=== PATIENT | male | born 1995 | race African-American/Black ===

== ENCOUNTER 2016-05-19 20:43 | Emergency (ER) | payer OTHER ==
[2016-05-19] MEDS ORDERED: ONDANSETRON 4MG/2ML VIAL (J2405) As Ordered ONE (23:00)
[2016-05-19 23:21] LABS: BASO # 0.1 K/mm3 (0.0-0.2); BASO % 1.4 % (0.0-1.0); EOS # 0.1 K/mm3 (0.0-0.50); EOS % 0.9 % (0.0-3.0); LARGE UNSTAINED CELL # 0.3 K/mm3 (0.0-0.4); LARGE UNSTAINED CELL % 3.2 % (0.0-4.0); LYMPH # 3.6 K/mm3 (1.5-6.5); LYMPH % 35.2 % (24.0-44.0); MEAN CORPUSCULAR HEMOGLOBIN 29.3 pg (27.0-33.0); MEAN CORPUSCULAR HGB CONC 33.7 g/dl (32.0-36.5); MEAN CORPUSCULAR VOLUME 86.8 fl (80.0-96.0); MONO # 0.5 K/mm3 (0.0-0.8); MONO % 5.7 % (0.0-5.0); NEUTROPHILS % 53.6 % (36.0-66.0); PLATELET COUNT, AUTOMATED 280 k/mm3 (150-450); RED CELL DISTRIBUTION WIDTH 13.1 % (11.5-14.5); WHITE BLOOD COUNT 9.3 K/mm3 (4.0-10.0)
[2016-05-19 23:38] LABS: ALBUMIN 4.4 GM/DL (3.2-5.2); ALBUMIN/GLOBULIN RATIO 1.26 (1.00-1.93); ALKALINE PHOSPHATASE 73 U/L (45-117); ALT/SGPT 26 U/L (12-78); ANION GAP 8 MEQ/L (8-16); AST/SGOT 28 U/L (15-37); BILIRUBIN,DIRECT 0.2 MG/DL (0.0-0.2); BILIRUBIN,TOTAL 0.5 MG/DL (0.2-1.0); BLOOD UREA NITROGEN 12 MG/DL (7-18); CALCIUM LEVEL 9.1 MG/DL (8.5-10.1); CARBON DIOXIDE LEVEL 29 MEQ/L (21-32); CHLORIDE LEVEL 99 MEQ/L (98-107); CREATININE FOR GFR 1.35 MG/DL (0.70-1.30); GLOMERULAR FILTRATION RATE > 60.0 (>60); GLUCOSE, FASTING 87 MG/DL (70-105); POTASSIUM SERUM 3.6 MEQ/L (3.5-5.1); SODIUM LEVEL 136 MEQ/L (136-145); TOTAL PROTEIN 7.9 GM/DL (6.4-8.2)
--- NOTE | 2016-05-20 00:25 | EDDOCDS ---
Nurse's Notes [facility] Name: Conrad Landaverde Age: 20 yrs Sex: Male : 1995 Arrival Date: 05/19/2016 Time: 20:43 Bed I3 / M3 Private MD: EUGENE Cerda Diagnosis: Nausea and vomiting Presentation: 05/19 20:51 Presenting complaint: Patient states: Hasn't eaten in 3 days, vomiting, drinking mcp pedialyte and not keeping it down, sweats at night. Adult Sepsis Screening: The patient does not have new or worsening altered mentation. Patient's respiratory rate is less than 22. Systolic blood pressure is greater than 100. Patient has a qSOFA score of 0- Negative Sepsis Screen. Suicide/Homicide risk assessment- the patient denies having any suicidal and/or homicidal ideations and does not present with any other emotional, behavioral or mental health complaints. Status: The patient is an active duty delivery driver/customer service. Transition of care: patient was not received from another setting of care. 20:51 Acuity: [place] Level 4 [facility] 20:51 Method Of Arrival: Walkin/Carried/Asstd [facility] Triage Assessment: 20:52 General: Appears in no apparent distress, Behavior is cooperative. Pain: Location: [facility] abdomen Pain currently is 6 out of 10 on a pain scale. HIV screening NA for this visit Offered previously. Neurological: No deficits noted. Respiratory: Airway is patent Respiratory effort is even, unlabored. GI: Reports upper abd pain, nausea, vomiting. Derm: Skin is pink, warm & dry. Historical: - Allergies: no known allergies; - Home Meds: 1. none - PMHx: none; - PSHx: none; - Social history: Smoking status: Patient uses tobacco products, light tobacco smoker. No barriers to communication noted, The patient speaks fluent Sri [place]ankan. - Family history: Not pertinent. - : The pt / caregiver states he / she is not on anticoagulants. Home medication list is obtained from the patient. - Exposure Risk Screening:: None identified. Screenin/07 00:22 Screening information is obtained from the patient. Fall risk: No risks identified. ld5 Assistance ADL's: requires no assistance with activities of daily living. Abuse/DV Screen: The patient / caregiver reports he/she is: not in a situation that causes fear, pain or injury. Nutritional screening: No deficits noted. Advance Directives: Currently, there is no health care proxy. home support is adequate. Assessment: 05/19 23:18 General: Appears in no apparent distress, Behavior is cooperative. Pain: Denies pain. ld5 Neurological: Level of Consciousness is awake, alert. Respiratory: Airway is patent Respiratory effort is even, unlabored. GI: Reports nausea, vomiting. Derm: Skin is intact, Skin is dry. 05/20 00:22 General: Appears in no apparent distress, Behavior is cooperative, pleasant. Pain: ld5 Denies pain. Neurological: Level of Consciousness is awake, alert. GI: Denies nausea, vomiting. Vital Signs: 05/19 20:46 BP 153 / 79; Pulse 97; Resp 18; Temp 98.8; Pulse Ox 99% ; Weight 65.77 kg; Height 5 ft. elp 11 in. (180.34 cm); Pain 0/10; 05/20 00:22 BP 137 / 75; Pulse 74; Resp 16; Temp 97.2; Pulse Ox 100% on R/A; Pain 0/10; ld5 05/19 20:46 Body Mass Index 20.22 (65.77 kg, 180.34 cm) elp Vitals: 05/19 20:46 Log In Time: May 19, 2016 at 20:42. [facility] ED Course: 20:44 Patient visited by Socorro Deluna PCA. elp 20:44 Prashant [facility] is Private Physician. elp 20:44 Patient moved to Waiting elp 20:47 Patient visited by Socorro Deluna PCA. elp 20:47 Patient moved to Pre RCE elp 20:52 Triage Initiated [facility] 20:53 Patient visited by Trice Ruiz RN. [facility] 22:37 Patient moved to Triage [facility] 22:39 [facility] cc[facility] 22:39 Georgi Mtz DO is Attending Physician. cc10 22:45 Patient visited by Keon Jane PA-C. cc10 22:45 Patient visited by Keon Jane PA-C. cc10 22:50 Patient moved to I3 / M3 cz 23:13 Patient visited by Lidia Gifford LPN. cp1 23:13 GC & Chlamydia Amplification Sent. cp1 23:13 Basic Metabolic Profile Sent. cp1 23:13 CBC with Diff Sent. cp1 23:13 Lipase Sent. cp1 23:13 Liver Profile Sent. cp1 23:14 Urinalysis Sent. cp1 23:14 Inserted saline lock: 20 gauge in left antecubital area and blood collected. The cp1 patient tolerated the procedure well. 23:45 Patient visited by Lidia Gifford LPN. cp1 23:53 [facility] Payment Agreement was scanned into [employer] and attached to record. hs2 05/20 00:18 Prashant [facility] is Referral Physician. cc10 00:22 The patient / caregiver is instructed regarding the plan of care and ED course. Patient ld5 has correct armband on for positive identification. Placed in gown. Bed in low position. Call light in reach. 00:22 Discontinued lock intact, bleeding controlled, pressure dressing applied, No ld5 redness/swelling at site. No procedures done that require assistance. 00:25 Patient visited by Aislinn Gonzales RN. ld5 Administered Medications: 05/19 23:12 Drug: NS 0.9% 1000 ml [sodium chloride 0.9 % intravenous solution] Route: IV; Rate: ld5 bolus; Site: left antecubital; 05/20 00:24 Follow up: IV Status: Completed infusion; IV Intake: 1000ml ld5 05/19 23:12 Drug: Ondansetron 4 mg [ondansetron HCl 2 mg/mL intravenous solution (2 mL)] Route: ld5 IVP; Site: left antecubital; 05/20 00:24 Follow up: Response: Nausea is resolved ld5 Intake: 00:24 IV: 1000.00ml; Total: 1000.00ml. ld5 Order Results: Lab Order: Basic Metabolic Profile; SPEC'M 05/19/16 23:11 Test: GLUCOSE, FASTING; Value: 87; Range: 70-105; Units: MG/DL; Status: F Test: BLOOD UREA NITROGEN; Value: 12; Range: 7-18; Units: MG/DL; Status: F Test: CREATININE FOR GFR; Value: 1.35; Range: 0.70-1.30; Abnormal: Above high normal; Units: MG/DL; Status: F Test: GLOMERULAR FILTRATION RATE; Value: > 60.0; Range: >60; Status: F Test: SODIUM LEVEL; Value: 136; Range: 136-145; Units: MEQ/L; Status: F Test: POTASSIUM SERUM; Value: 3.6; Range: 3.5-5.1; Units: MEQ/L; Status: F Test: CHLORIDE LEVEL; Value: 99; Range: 98-107; Units: MEQ/L; Status: F Test: CARBON DIOXIDE LEVEL; Value: 29; Range: 21-32; Units: MEQ/L; Status: F Test: ANION GAP; Value: 8; Range: 8-16; Units: MEQ/L; Status: F Test: CALCIUM LEVEL; Value: 9.1; Range: 8.5-10.1; Units: MG/DL; Status: F Test Note: ; Units are mL/min/1.73 m2 Chronic Kidney Disease Staging per NKF: Stage I & II GFR >=60 Normal to Mildly Decreased Stage III GFR 30-59 Moderately Decreased Stage IV GFR 15-29 Severely Decreased Stage V GFR <15 Very Little GFR Left ESRD GFR <15 on TRANSCRIPTION SPECIALIST Lab Order: CBC with Diff; SPEC'M 05/19/16 23:11 Test: WHITE BLOOD COUNT; Value: 9.3; Range: 4.0-10.0; Units: K/mm3; Status: F Test: RED BLOOD COUNT; Value: 5.16; Range: 4.30-6.10; Units: M/mm3; Status: F Test: HEMOGLOBIN; Value: 15.1; Range: 14.0-18.0; Units: g/dl; Status: F Test: HEMATOCRIT; Value: 44.8; Range: 42.0-52.0; Units: %; Status: F Test: MEAN CORPUSCULAR VOLUME; Value: 86.8; Range: 80.0-96.0; Units: fl; Status: F Test: MEAN CORPUSCULAR HEMOGLOBIN; Value: 29.3; Range: 27.0-33.0; Units: pg; Status: F Test: MEAN CORPUSCULAR HGB CONC; Value: 33.7; Range: 32.0-36.5; Units: g/dl; Status: F Test: RED CELL DISTRIBUTION WIDTH; Value: 13.1; Range: 11.5-14.5; Units: %; Status: F Test: PLATELET COUNT, AUTOMATED; Value: 280; Range: 150-450; Units: k/mm3; Status: F Test: NEUTROPHILS %; Value: 53.6; Range: 36.0-66.0; Units: %; Status: F Test: LYMPH %; Value: 35.2; Range: 24.0-44.0; Units: %; Status: F Test: MONO %; Value: 5.7; Range: 0.0-5.0; Abnormal: Above high normal; Units: %; Status: F Test: EOS %; Value: 0.9; Range: 0.0-3.0; Units: %; Status: F Test: BASO %; Value: 1.4; Range: 0.0-1.0; Abnormal: Above high normal; Units: %; Status: F Test: LARGE UNSTAINED CELL %; Value: 3.2; Range: 0.0-4.0; Units: %; Status: F Test: NEUTROPHILS #; Value: 5.0; Range: 1.8-7.7; Units: K/mm3; Status: F Test: LYMPH #; Value: 3.6; Range: 1.5-6.5; Units: K/mm3; Status: F Test: MONO #; Value: 0.5; Range: 0.0-0.8; Units: K/mm3; Status: F Test: EOS #; Value: 0.1; Range: 0.0-0.50; Units: K/mm3; Status: F Test: BASO #; Value: 0.1; Range: 0.0-0.2; Units: K/mm3; Status: F Test: LARGE UNSTAINED CELL #; Value: 0.3; Range: 0.0-0.4; Units: K/mm3; Status: F Lab Order: Lipase; SPEC'M 05/19/16 23:11 Test: LIPASE; Value: 125; Range: 73-393; Units: U/L; Status: F Lab Order: Liver Profile; SPEC'M 05/19/16 23:11 Test: AST/SGOT; Value: 28; Range: 15-37; Units: U/L; Status: F Test: ALT/SGPT; Value: 26; Range: 12-78; Units: U/L; Status: F Test: ALKALINE PHOSPHATASE; Value: 73; Range: 45-117; Units: U/L; Status: F Test: BILIRUBIN,TOTAL; Value: 0.5; Range: 0.2-1.0; Units: MG/DL; Status: F Test: BILIRUBIN,DIRECT; Value: 0.2; Range: 0.0-0.2; Units: MG/DL; Status: F Test: TOTAL PROTEIN; Value: 7.9; Range: 6.4-8.2; Units: GM/DL; Status: F Test: ALBUMIN; Value: 4.4; Range: 3.2-5.2; Units: GM/DL; Status: F Test: ALBUMIN/GLOBULIN RATIO; Value: 1.26; Range: 1.00-1.93; Status: F Lab Order: Urinalysis; SPEC'M 05/19/16 23:12 Test: APPEARANCE, URINE; Value: HAZY; Range: CLEAR; Status: F Test: COLOR, URINE; Value: LEWIS; Range: YELLOW; Status: F Test: PH,URINE; Value: 5.0; Range: 5.0-9.0; Units: UNITS; Status: F Test: SPECIFIC GRAVITY URINE AUTO; Value: 1.040; Range: 1.002-1.035; Status: F Test: PROTEIN, URINE AUTO; Value: 2+; Range: NEGATIVE; Abnormal: Above high normal; Units: mg/dL; Status: F Test: GLUCOSE, URINE (UA) AUTO; Value: NEGATIVE; Range: NEGATIVE; Units: mg/dL; Status: F Test: KETONE, URINE AUTO; Value: TRACE; Range: NEGATIVE; Abnormal: Above high normal; Units: mg/dL; Status: F Test: UROBILINOGEN, URINE AUTO; Value: 2.0; Range: 0.0-2.0; Abnormal: Above high normal; Units: mg/dL; Status: F Test: BILIRUBIN, URINE AUTO; Value: 1+; Range: NEGATIVE; Abnormal: Above high normal; Status: F Test: NITRITE, URINE AUTO; Value: NEGATIVE; Range: NEGATIVE; Status: F Test: LEUKOCYTE ESTERASE, URINE AUTO; Value: 1+; Range: NEGATIVE; Abnormal: Above high normal; Status: F Test: BLOOD, URINE BLOOD; Value: NEGATIVE; Range: NEGATIVE; Status: F Test: WBC, URINE AUTO; Value: 29; Range: 0-3; Abnormal: Above high normal; Units: /HPF; Status: F Test: RBC, URINE AUTO; Value: 7; Range: 0-3; Abnormal: Above high normal; Units: /HPF; Status: F Test: BACTERIA, URINE AUTO; Value: NEGATIVE; Range: NEGATIVE; Status: F Test: SQUAMOUS EPITHELIAL CELL UR AU; Value: 0; Range: 0-6; Units: /HPF; Status: F Test: MUCUS, URINE; Value: LARGE; Range: NEGATIVE; Status: F Test: HYALINE CAST, URINE AUTO; Value: 0; Range: 0-1; Units: /LPF; Status: F Outcome: 00:18 Discharge ordered by Provider. cc10 00:22 Discharge Assessment: Patient awake, alert and oriented x 3. No cognitive and/or ld5 functional deficits noted. Patient verbalized understanding of disposition instructions. patient administered narcotics - no. The following High Risk Discharge criteria are identified: None. Discharged to home ambulatory. Condition: stable. Discharge instructions given to patient, Instructed on discharge instructions, follow up and referral plans. medication usage, diet, safe sex practices, Demonstrated understanding of instructions, medications, Pt was receptive of discharge instructions/ teaching. Prescriptions given X 1. No special radiology studies were completed. Property :Personal belongings accompany Pt. 00:25 Patient left the ED. ld5 Signatures: Trice Ruiz RN RN mcp Zecher, Calvin, RN RN cz Perkins, Cheryl, LPN LPN cp1 Aislinn Gonzales RN RN ld5 Joy Selby RN RN cjh Patchen, Erin, [place] [employer] Keon Hinkle, PA-C PA-C cc10 Tresa Tapia, Reg Reg hs2 MTDD
--- NOTE | 2016-05-20 00:25 | EDDOCDS ---
Physician Documentation [facility] Name: Conrad Landaverde Age: 20 yrs Sex: Male : 1995 Arrival Date: 05/19/2016 Time: 20:43 Bed I3 / M3 Private MD: EUGENE Cerda Disposition: 05/20/16 00:18 Discharged to Home/Self Care. Impression: Nausea and vomiting. - Condition is Stable. - Discharge Instructions: Nausea and Vomiting. - Prescriptions for ZOFRAN ODT 4 mg - dissolve 1 tablet by ORAL route 4 times per day As needed do not chew, do not swallow whole; 10 tablet. - Medication Reconciliation form. - Follow up: Emergency Department; When: As needed. Follow up: EUGENE Cerda; When: Call to arrange an appointment; Reason: Wound/Symptom Recheck, Recheck today's complaints, Worsening of conditions, Continuance of care. - Problem is an ongoing problem. - Symptoms have improved. Historical: - Allergies: no known allergies; - Home Meds: 1. none - PMHx: none; - PSHx: none; - Social history: Smoking status: Patient uses tobacco products, light tobacco smoker. No barriers to communication noted, The patient speaks fluent Dominican. - Family history: Not pertinent. - : The pt / caregiver states he / she is not on anticoagulants. Home medication list is obtained from the patient. - Exposure Risk Screening:: None identified. Vital Signs: 05/19 20:46 BP 153 / 79; Pulse 97; Resp 18; Temp 98.8; Pulse Ox 99% ; Weight 65.77 kg / 145 lbs; elp Height 5 ft. 11 in. (180.34 cm); Pain 0/10; 05/20 00:22 BP 137 / 75; Pulse 74; Resp 16; Temp 97.2; Pulse Ox 100% on R/A; Pain 0/10; ld5 05/19 20:46 Body Mass Index 20.22 (65.77 kg, 180.34 cm) elp MDM: 05/19 22:50 NS 0.9% 1000 ml IV at bolus once ordered. cc10 22:50 Ondansetron 4 mg IVP once ordered. cc10 22:50 IV Saline Lock ordered. cc10 22:50 Undress patient appropriately for examination ordered. cc10 22:51 Basic Metabolic Profile Ordered. EDMS 22:51 CBC with Diff Ordered. EDMS 22:51 Lipase Ordered. EDMS 22:51 Liver Profile Ordered. EDMS 22:51 Urinalysis Ordered. EDMS 22:51 GC & Chlamydia Amplification Ordered. EDMS 22:52 NOTHING BY MOUTH+DIET ordered. EDMS 23:43 Financial registration complete. hs2 23:53 [facility] Payment Agreement was scanned into [employer] and attached to record. hs2 Administered Medications: 23:12 Drug: NS 0.9% 1000 ml [sodium chloride 0.9 % intravenous solution] Route: IV; Rate: ld5 bolus; Site: left antecubital; 05/20 00:24 Follow up: IV Status: Completed infusion; IV Intake: 1000ml ld5 05/19 23:12 Drug: Ondansetron 4 mg [ondansetron HCl 2 mg/mL intravenous solution (2 mL)] Route: ld5 IVP; Site: left antecubital; 05/20 00:24 Follow up: Response: Nausea is resolved ld5 Signatures: Dispatcher [employer] Trice Francis RN RN [facility] Aislinn Gonzales RN RN ld5 Keon Jane, PA-C PA-C cc10 Tresa Tapia, Reg Reg hs2 The chart was reviewed and I authenticate all verbal orders and agree with the evaluation and treatment provided.Attachments: 05/19 23:53 [facility] Payment Agreement hs2 MTDD
--- NOTE | 2016-05-23 10:16 | EDDOCDS ---
Nurse's Notes [facility] Name: Conrad Landaverde Age: 20 yrs Sex: Male : 1995 Arrival Date: 05/19/2016 Time: 20:43 Bed I3 / M3 Private MD: EUGENE Cerda Diagnosis: Nausea and vomiting Presentation: 05/19 20:51 Presenting complaint: Patient states: Hasn't eaten in 3 days, vomiting, drinking mcp pedialyte and not keeping it down, sweats at night. Adult Sepsis Screening: The patient does not have new or worsening altered mentation. Patient's respiratory rate is less than 22. Systolic blood pressure is greater than 100. Patient has a qSOFA score of 0- Negative Sepsis Screen. Suicide/Homicide risk assessment- the patient denies having any suicidal and/or homicidal ideations and does not present with any other emotional, behavioral or mental health complaints. Status: The patient is an active duty food service utility worker. Transition of care: patient was not received from another setting of care. 20:51 Acuity: CAMILLE Level 4 [facility] 20:51 Method Of Arrival: Walkin/Carried/Asstd [facility] Triage Assessment: 20:52 General: Appears in no apparent distress, Behavior is cooperative. Pain: Location: [facility] abdomen Pain currently is 6 out of 10 on a pain scale. HIV screening NA for this visit Offered previously. Neurological: No deficits noted. Respiratory: Airway is patent Respiratory effort is even, unlabored. GI: Reports upper abd pain, nausea, vomiting. Derm: Skin is pink, warm & dry. Historical: - Allergies: no known allergies; - Home Meds: 1. none - PMHx: none; - PSHx: none; - Social history: Smoking status: Patient uses tobacco products, light tobacco smoker. No barriers to communication noted, The patient speaks fluent British. - Family history: Not pertinent. - : The pt / caregiver states he / she is not on anticoagulants. Home medication list is obtained from the patient. - Exposure Risk Screening:: None identified. Screenin/07 00:22 Screening information is obtained from the patient. Fall risk: No risks identified. ld5 Assistance ADL's: requires no assistance with activities of daily living. Abuse/DV Screen: The patient / caregiver reports he/she is: not in a situation that causes fear, pain or injury. Nutritional screening: No deficits noted. Advance Directives: Currently, there is no health care proxy. home support is adequate. Assessment: 05/19 23:18 General: Appears in no apparent distress, Behavior is cooperative. Pain: Denies pain. ld5 Neurological: Level of Consciousness is awake, alert. Respiratory: Airway is patent Respiratory effort is even, unlabored. GI: Reports nausea, vomiting. Derm: Skin is intact, Skin is dry. 05/20 00:22 General: Appears in no apparent distress, Behavior is cooperative, pleasant. Pain: ld5 Denies pain. Neurological: Level of Consciousness is awake, alert. GI: Denies nausea, vomiting. Vital Signs: 05/19 20:46 BP 153 / 79; Pulse 97; Resp 18; Temp 98.8; Pulse Ox 99% ; Weight 65.77 kg; Height 5 ft. elp 11 in. (180.34 cm); Pain 0/10; 05/20 00:22 BP 137 / 75; Pulse 74; Resp 16; Temp 97.2; Pulse Ox 100% on R/A; Pain 0/10; ld5 05/19 20:46 Body Mass Index 20.22 (65.77 kg, 180.34 cm) elp Vitals: 05/19 20:46 Log In Time: May 19, 2016 at 20:42. [facility] ED Course: 20:44 Patient visited by Socorro Deluna PCA. elp 20:44 Prashant [facility] [place] Private Physician. elp 20:44 Patient moved to Waiting elp 20:47 Patient visited by Socorro Deluna PCA. elp 20:47 Patient moved to Pre RCE elp 20:52 Triage Initiated [facility] 20:53 Patient visited by Trice Ruiz RN. [facility] 22:37 Patient moved to Triage 1 [facility] 22:39 [facility] cc[facility] 22:39 Georgi Mtz DO is Attending Physician. cc10 22:45 Patient visited by Keon Jane PA-C. cc10 22:45 Patient visited by Keon Jane PA-C. cc10 22:50 Patient moved to I3 / M3 cz 23:13 Patient visited by Lidia Gifford LPN. cp1 23:13 GC & Chlamydia Amplification Sent. cp1 23:13 Basic Metabolic Profile Sent. cp1 23:13 CBC with Diff Sent. cp1 23:13 Lipase Sent. cp1 23:13 Liver Profile Sent. cp1 23:14 Urinalysis Sent. cp1 23:14 Inserted saline lock: 20 gauge in left antecubital area and blood collected. The cp1 patient tolerated the procedure well. 23:45 Patient visited by Lidia Gifford LPN. cp1 23:53 [facility] Payment Agreement was scanned into [employer] and attached to record. hs2 05/20 00:18 [facility]ashant [facility] [place]erral Physician. cc10 00:22 The patient / caregiver is instructed regarding the plan of care and ED course. Patient ld5 has correct armband on for positive identification. Placed in gown. Bed in low position. Call light in reach. 00:22 Discontinued lock intact, bleeding controlled, pressure dressing applied, No ld5 redness/swelling at site. No procedures done that require assistance. 00:25 Patient visited by Aislinn Gonzales RN. ld5 08:06 T-Sheet-- Draft Copy was scanned into [employer] and attached to record. [facility] Administered Medications: 05/19 23:12 Drug: NS 0.9% 1000 ml [sodium chloride 0.9 % intravenous solution] Route: IV; Rate: ld5 bolus; Site: left antecubital; 05/20 00:24 Follow up: IV Status: Completed infusion; IV Intake: 1000ml ld5 05/19 23:12 Drug: Ondansetron 4 mg [ondansetron HCl 2 mg/mL intravenous solution (2 mL)] Route: ld5 IVP; Site: left antecubital; 05/20 00:24 Follow up: Response: Nausea is resolved ld5 Intake: 00:24 IV: 1000.00ml; Total: 1000.00ml. ld5 Order Results: Lab Order: Basic Metabolic Profile; SPEC'M 05/19/16 23:11 Test: GLUCOSE, FASTING; Value: 87; Range: 70-105; Units: MG/DL; Status: F Test: BLOOD UREA NITROGEN; Value: 12; Range: 7-18; Units: MG/DL; Status: F Test: CREATININE FOR GFR; Value: 1.35; Range: 0.70-1.30; Abnormal: Above high normal; Units: MG/DL; Status: F Test: GLOMERULAR FILTRATION RATE; Value: > 60.0; Range: >60; Status: F Test: SODIUM LEVEL; Value: 136; Range: 136-145; Units: MEQ/L; Status: F Test: POTASSIUM SERUM; Value: 3.6; Range: 3.5-5.1; Units: MEQ/L; Status: F Test: CHLORIDE LEVEL; Value: 99; Range: 98-107; Units: MEQ/L; Status: F Test: CARBON DIOXIDE LEVEL; Value: 29; Range: 21-32; Units: MEQ/L; Status: F Test: ANION GAP; Value: 8; Range: 8-16; Units: MEQ/L; Status: F Test: CALCIUM LEVEL; Value: 9.1; Range: 8.5-10.1; Units: MG/DL; Status: F Test Note: ; Units are mL/min/1.73 m2 Chronic Kidney Disease Staging per NKF: Stage I & II GFR >=60 Normal to Mildly Decreased Stage III GFR 30-59 Moderately Decreased Stage IV GFR 15-29 Severely Decreased Stage V GFR <15 Very Little GFR Left ESRD GFR <15 on WATER PURIFICATION CHEMIST Lab Order: CBC with Diff; SPEC'M 05/19/16 23:11 Test: WHITE BLOOD COUNT; Value: 9.3; Range: 4.0-10.0; Units: K/mm3; Status: F Test: RED BLOOD COUNT; Value: 5.16; Range: 4.30-6.10; Units: M/mm3; Status: F Test: HEMOGLOBIN; Value: 15.1; Range: 14.0-18.0; Units: g/dl; Status: F Test: HEMATOCRIT; Value: 44.8; Range: 42.0-52.0; Units: %; Status: F Test: MEAN CORPUSCULAR VOLUME; Value: 86.8; Range: 80.0-96.0; Units: fl; Status: F Test: MEAN CORPUSCULAR HEMOGLOBIN; Value: 29.3; Range: 27.0-33.0; Units: pg; Status: F Test: MEAN CORPUSCULAR HGB CONC; Value: 33.7; Range: 32.0-36.5; Units: g/dl; Status: F Test: RED CELL DISTRIBUTION WIDTH; Value: 13.1; Range: 11.5-14.5; Units: %; Status: F Test: PLATELET COUNT, AUTOMATED; Value: 280; Range: 150-450; Units: k/mm3; Status: F Test: NEUTROPHILS %; Value: 53.6; Range: 36.0-66.0; Units: %; Status: F Test: LYMPH %; Value: 35.2; Range: 24.0-44.0; Units: %; Status: F Test: MONO %; Value: 5.7; Range: 0.0-5.0; Abnormal: Above high normal; Units: %; Status: F Test: EOS %; Value: 0.9; Range: 0.0-3.0; Units: %; Status: F Test: BASO %; Value: 1.4; Range: 0.0-1.0; Abnormal: Above high normal; Units: %; Status: F Test: LARGE UNSTAINED CELL %; Value: 3.2; Range: 0.0-4.0; Units: %; Status: F Test: NEUTROPHILS #; Value: 5.0; Range: 1.8-7.7; Units: K/mm3; Status: F Test: LYMPH #; Value: 3.6; Range: 1.5-6.5; Units: K/mm3; Status: F Test: MONO #; Value: 0.5; Range: 0.0-0.8; Units: K/mm3; Status: F Test: EOS #; Value: 0.1; Range: 0.0-0.50; Units: K/mm3; Status: F Test: BASO #; Value: 0.1; Range: 0.0-0.2; Units: K/mm3; Status: F Test: LARGE UNSTAINED CELL #; Value: 0.3; Range: 0.0-0.4; Units: K/mm3; Status: F Lab Order: Lipase; SPEC'M 05/19/16 23:11 Test: LIPASE; Value: 125; Range: 73-393; Units: U/L; Status: F Lab Order: Liver Profile; SPEC'M 05/19/16 23:11 Test: AST/SGOT; Value: 28; Range: 15-37; Units: U/L; Status: F Test: ALT/SGPT; Value: 26; Range: 12-78; Units: U/L; Status: F Test: ALKALINE PHOSPHATASE; Value: 73; Range: 45-117; Units: U/L; Status: F Test: BILIRUBIN,TOTAL; Value: 0.5; Range: 0.2-1.0; Units: MG/DL; Status: F Test: BILIRUBIN,DIRECT; Value: 0.2; Range: 0.0-0.2; Units: MG/DL; Status: F Test: TOTAL PROTEIN; Value: 7.9; Range: 6.4-8.2; Units: GM/DL; Status: F Test: ALBUMIN; Value: 4.4; Range: 3.2-5.2; Units: GM/DL; Status: F Test: ALBUMIN/GLOBULIN RATIO; Value: 1.26; Range: 1.00-1.93; Status: F Lab Order: Urinalysis; SPEC'M 05/19/16 23:12 Test: APPEARANCE, URINE; Value: HAZY; Range: CLEAR; Status: F Test: COLOR, URINE; Value: LEWIS; Range: YELLOW; Status: F Test: PH,URINE; Value: 5.0; Range: 5.0-9.0; Units: UNITS; Status: F Test: SPECIFIC GRAVITY URINE AUTO; Value: 1.040; Range: 1.002-1.035; Status: F Test: PROTEIN, URINE AUTO; Value: 2+; Range: NEGATIVE; Abnormal: Above high normal; Units: mg/dL; Status: F Test: GLUCOSE, URINE (UA) AUTO; Value: NEGATIVE; Range: NEGATIVE; Units: mg/dL; Status: F Test: KETONE, URINE AUTO; Value: TRACE; Range: NEGATIVE; Abnormal: Above high normal; Units: mg/dL; Status: F Test: UROBILINOGEN, URINE AUTO; Value: 2.0; Range: 0.0-2.0; Abnormal: Above high normal; Units: mg/dL; Status: F Test: BILIRUBIN, URINE AUTO; Value: 1+; Range: NEGATIVE; Abnormal: Above high normal; Status: F Test: NITRITE, URINE AUTO; Value: NEGATIVE; Range: NEGATIVE; Status: F Test: LEUKOCYTE ESTERASE, URINE AUTO; Value: 1+; Range: NEGATIVE; Abnormal: Above high normal; Status: F Test: BLOOD, URINE BLOOD; Value: NEGATIVE; Range: NEGATIVE; Status: F Test: WBC, URINE AUTO; Value: 29; Range: 0-3; Abnormal: Above high normal; Units: /HPF; Status: F Test: RBC, URINE AUTO; Value: 7; Range: 0-3; Abnormal: Above high normal; Units: /HPF; Status: F Test: BACTERIA, URINE AUTO; Value: NEGATIVE; Range: NEGATIVE; Status: F Test: SQUAMOUS EPITHELIAL CELL UR AU; Value: 0; Range: 0-6; Units: /HPF; Status: F Test: MUCUS, URINE; Value: LARGE; Range: NEGATIVE; Status: F Test: HYALINE CAST, URINE AUTO; Value: 0; Range: 0-1; Units: /LPF; Status: F Lab Order: GC & Chlamydia Amplification; SPEC'M 05/19/16 23:11 Test: CHLAMYDIA DNA AMPLIFICATION; Value: NEGATIVE; Range: NEGATIVE; Status: F Test: GC DNA AMPLIFICATION; Value: NEGATIVE; Range: NEGATIVE; Status: F Outcome: 00:18 Discharge ordered by Provider. cc10 00:22 Discharge Assessment: Patient awake, alert and oriented x 3. No cognitive and/or ld5 functional deficits noted. Patient verbalized understanding of disposition instructions. patient administered narcotics - no. The following High Risk Discharge criteria are identified: None. Discharged to home ambulatory. Condition: stable. Discharge instructions given to patient, Instructed on discharge instructions, follow up and referral plans. medication usage, diet, safe sex practices, Demonstrated understanding of instructions, medications, Pt was receptive of discharge instructions/ teaching. Prescriptions given X 1. No special radiology studies were completed. Property :Personal belongings accompany Pt. 00:25 Patient left the ED. ld5 Signatures: Trice Ruiz RN Nicanor Jimenez mcp, RN RN cz Perkins, Cheryl, LPN LPN cp1 Aislinn Gonzales RN RN ld5 Joy Selby RN RN cjh Patchen, Erin, [place] [employer] Keon Hinkle, PA-C PA-C cc10 Felix Tapiaary, Reg Reg hs2 HildaGloria Chart Complete MTDD
--- NOTE | 2016-05-23 10:16 | EDDOCDS ---
Physician Documentation [facility] Name: Conrad Landaverde Age: 20 yrs Sex: Male : 1995 Arrival Date: 05/19/2016 Time: 20:43 Bed I3 / M3 Private MD: EUGENE Cerda Disposition: 05/20/16 00:18 Discharged to Home/Self Care. Impression: Nausea and vomiting. - Condition is Stable. - Discharge Instructions: Nausea and Vomiting. - Prescriptions for ZOFRAN ODT 4 mg - dissolve 1 tablet by ORAL route 4 times per day As needed do not chew, do not swallow whole; 10 tablet. - Medication Reconciliation form. - Follow up: Emergency Department; When: As needed. Follow up: EUGENE Cerda; When: Call to arrange an appointment; Reason: Wound/Symptom Recheck, Recheck today's complaints, Worsening of conditions, Continuance of care. - Problem is an ongoing problem. - Symptoms have improved. Historical: - Allergies: no known allergies; - Home Meds: 1. none - PMHx: none; - PSHx: none; - Social history: Smoking status: Patient uses tobacco products, light tobacco smoker. No barriers to communication noted, The patient speaks fluent Turkmen. - Family history: Not pertinent. - : The pt / caregiver states he / she is not on anticoagulants. Home medication list is obtained from the patient. - Exposure Risk Screening:: None identified. Vital Signs: 05/19 20:46 BP 153 / 79; Pulse 97; Resp 18; Temp 98.8; Pulse Ox 99% ; Weight 65.77 kg / 145 lbs; elp Height 5 ft. 11 in. (180.34 cm); Pain 0/10; 05/20 00:22 BP 137 / 75; Pulse 74; Resp 16; Temp 97.2; Pulse Ox 100% on R/A; Pain 0/10; ld5 05/19 20:46 Body Mass Index 20.22 (65.77 kg, 180.34 cm) elp MDM: 05/19 22:50 NS 0.9% 1000 ml IV at bolus once ordered. cc10 22:50 Ondansetron 4 mg IVP once ordered. cc10 22:50 IV Saline Lock ordered. cc10 22:50 Undress patient appropriately for examination ordered. cc10 22:51 Basic Metabolic Profile Ordered. EDMS 22:51 CBC with Diff Ordered. EDMS 22:51 Lipase Ordered. EDMS 22:51 Liver Profile Ordered. EDMS 22:51 Urinalysis Ordered. EDMS 22:51 GC & Chlamydia Amplification Ordered. EDMS 22:52 NOTHING BY MOUTH+DIET ordered. EDMS 23:43 Financial registration complete. hs2 23:53 [facility] Payment Agreement was scanned into [employer] and attached to record. hs2 05/20 08:06 T-Sheet-- Draft Copy was scanned into [employer] and attached to record. seh Administered Medications: 05/19 23:12 Drug: NS 0.9% 1000 ml [sodium chloride 0.9 % intravenous solution] Route: IV; Rate: ld5 bolus; Site: left antecubital; 05/20 00:24 Follow up: IV Status: Completed infusion; IV Intake: 1000ml ld5 05/19 23:12 Drug: Ondansetron 4 mg [ondansetron HCl 2 mg/mL intravenous solution (2 mL)] Route: ld5 IVP; Site: left antecubital; 05/20 00:24 Follow up: Response: Nausea is resolved ld5 Signatures: Dispatcher [employer] EDMS Trice Ruiz RN RN [facility] Aislinn Gonzales RN RN ld5 Keon Jane PAPrincessC PAPrincessC cc10 Tresa Tapia, Reg Reg hs2 HildaMckenzieah [facility] The chart was reviewed and I authenticate all verbal orders and agree with the evaluation and treatment provided.Attachments: 05/19 23:53 [facility] Payment Agreement hs2 05/20 08:06 T-Sheet-- Draft Copy [facility] Chart Complete MTDD
--- NOTE | 2016-05-23 10:16 | EDDOCDS ---
Physician Documentation [facility] Name: Conrad Landaverde Age: 20 yrs Sex: Male : 1995 Arrival Date: 05/19/2016 Time: 20:43 Bed I3 / M3 Private MD: EUGENE Cerda Disposition: 05/20/16 00:18 Discharged to Home/Self Care. Impression: Nausea and vomiting. - Condition is Stable. - Discharge Instructions: Nausea and Vomiting. - Prescriptions for ZOFRAN ODT 4 mg - dissolve 1 tablet by ORAL route 4 times per day As needed do not chew, do not swallow whole; 10 tablet. - Medication Reconciliation form. - Follow up: Emergency Department; When: As needed. Follow up: EUGENE Cerda; When: Call to arrange an appointment; Reason: Wound/Symptom Recheck, Recheck today's complaints, Worsening of conditions, Continuance of care. - Problem is an ongoing problem. - Symptoms have improved. Historical: - Allergies: no known allergies; - Home Meds: 1. none - PMHx: none; - PSHx: none; - Social history: Smoking status: Patient uses tobacco products, light tobacco smoker. No barriers to communication noted, The patient speaks fluent Bangladeshi. - Family history: Not pertinent. - : The pt / caregiver states he / she is not on anticoagulants. Home medication list is obtained from the patient. - Exposure Risk Screening:: None identified. Vital Signs: 05/19 20:46 BP 153 / 79; Pulse 97; Resp 18; Temp 98.8; Pulse Ox 99% ; Weight 65.77 kg / 145 lbs; elp Height 5 ft. 11 in. (180.34 cm); Pain 0/10; 05/20 00:22 BP 137 / 75; Pulse 74; Resp 16; Temp 97.2; Pulse Ox 100% on R/A; Pain 0/10; ld5 05/19 20:46 Body Mass Index 20.22 (65.77 kg, 180.34 cm) elp MDM: 05/19 22:50 NS 0.9% 1000 ml IV at bolus once ordered. cc10 22:50 Ondansetron 4 mg IVP once ordered. cc10 22:50 IV Saline Lock ordered. cc10 22:50 Undress patient appropriately for examination ordered. cc10 22:51 Basic Metabolic Profile Ordered. EDMS 22:51 CBC with Diff Ordered. EDMS 22:51 Lipase Ordered. EDMS 22:51 Liver Profile Ordered. EDMS 22:51 Urinalysis Ordered. EDMS 22:51 GC & Chlamydia Amplification Ordered. EDMS 22:52 NOTHING BY MOUTH+DIET ordered. EDMS 23:43 Financial registration complete. hs2 23:53 [facility] Payment Agreement was scanned into [employer] and attached to record. hs2 05/20 08:06 T-Sheet-- Draft Copy was scanned into [employer] and attached to record. seh Administered Medications: 05/19 23:12 Drug: NS 0.9% 1000 ml [sodium chloride 0.9 % intravenous solution] Route: IV; Rate: ld5 bolus; Site: left antecubital; 05/20 00:24 Follow up: IV Status: Completed infusion; IV Intake: 1000ml ld5 05/19 23:12 Drug: Ondansetron 4 mg [ondansetron HCl 2 mg/mL intravenous solution (2 mL)] Route: ld5 IVP; Site: left antecubital; 05/20 00:24 Follow up: Response: Nausea is resolved ld5 Signatures: Dispatcher [employer] EDMS Trice Ruiz RN RN [facility] Aislinn Gonzales RN RN ld5 Keon Jane PAPrincessC PAPrincessC cc10 Trsea Tapia, Reg Reg hs2 HildaMckenzieah [facility] The chart was reviewed and I authenticate all verbal orders and agree with the evaluation and treatment provided.Attachments: 05/19 23:53 [facility] Payment Agreement hs2 05/20 08:06 T-Sheet-- Draft Copy [facility] Chart Complete MTDD
== END 2016-05-20 00:25 | disposition home or self-care (01) ==
LOC: M ED 20:43
DX: E86.0 Dehydration (principal); R11.2 Nausea with vomiting, unspecified; Z72.0 Tobacco use
CPT/HCPCS: 36415; 80048; 80076; 81001; 83690; 85025; 87491; 87591; 96361; 96374; 99284; J2405

== ENCOUNTER 2016-07-31 14:58 | Inpatient (IN) | payer OTHER ==
[~2016-07-31] VITALS: Ht 182.9 cm; Wt 83.0 kg
[2016-07-31 17:30] LABS: MEAN CORPUSCULAR HEMOGLOBIN 30.7 pg (27.0-33.0); MEAN CORPUSCULAR HGB CONC 33.6 g/dl (32.0-36.5); MEAN CORPUSCULAR VOLUME 91.5 fl (80.0-96.0); RED CELL DISTRIBUTION WIDTH 12.1 % (11.5-14.5); WHITE BLOOD COUNT 5.9 K/mm3 (4.0-10.0)
[2016-07-31 17:47] LABS: ALBUMIN 3.8 GM/DL (3.2-5.2); ALBUMIN/GLOBULIN RATIO 1.27 (1.00-1.93); ALKALINE PHOSPHATASE 93 U/L (45-117); ALT/SGPT 16 U/L (12-78); ANION GAP 6 MEQ/L (8-16); AST/SGOT 12 U/L (15-37); BILIRUBIN,DIRECT < 0.1 MG/DL (0.0-0.2); BILIRUBIN,TOTAL 0.2 MG/DL (0.2-1.0); BLOOD UREA NITROGEN 21 MG/DL (7-18); CALCIUM LEVEL 8.7 MG/DL (8.5-10.1); CARBON DIOXIDE LEVEL 31 MEQ/L (21-32); CHLORIDE LEVEL 105 MEQ/L (98-107); CREATININE FOR GFR 1.12 MG/DL (0.70-1.30); GLOMERULAR FILTRATION RATE > 60.0 (>60); GLUCOSE, FASTING 83 MG/DL (70-105); POTASSIUM SERUM 4.2 MEQ/L (3.5-5.1); SODIUM LEVEL 142 MEQ/L (136-145); TOTAL PROTEIN 6.8 GM/DL (6.4-8.2)
[2016-07-31 17:51] LABS: METHADONE URINE NEGATIVE (NEGATIVE)
[2016-07-31 20:59] VITALS: BP 137/79
[2016-07-31] MEDS ORDERED: MAALOX 30 ML SUSP *UDC PO PRN (22:15)
[2016-07-31] MEDS ORDERED: MOM 30ML SUSPENSION UDC PO PRN (22:15)
[2016-07-31] MEDS ORDERED: ACETAMINOPHEN TAB 650MG DOSE (2X325MG) PO PRN (22:15)
[2016-07-31] MEDS ORDERED: risperiDONE 1 MG TAB PO PRN (22:15)
[2016-07-31] MEDS: traZODone 50 MG TAB PO PRN (22:39)
[2016-08-01 06:36] VITALS: BP 121/65
[2016-08-01] MEDS ORDERED: NICOTINE 21MG/24HR 1 EA TRANSDERMAL TD SCH (09:00)
--- NOTE | 2016-08-01 10:02 | HPEPDOC ---
Medical History and Physical Date of Admission Jul 31, 2016 at 18:07 History and Physical PCP: [facility] ATTENDING: Dr. Sergo Heard HPI: 20yoM admitted to [facility] for Acute psychosis with HI/SI, being medically examined today. No acute medical complaints today. Denies any fevers, chills, weakness, fatigue, [place], CP, SOB, cough, palpitations, abdominal pain, N/V/D or changes in bowel or bladder habits. PMHx: Depression Substance use Tobacco use PSHX: Denies SOCHX: Resides in: [place], from [facility] Marital Status: Single Kids: None Employment: Active duty Tobacco use: One half pack per day ETOH: One to 2 drinks on weekends Illicit Drugs: Marijuana daily, MDMA on weekends, Percocet when he can get it, Xanax on weekends IV Drug Use: Denies Tattoos done unprofessionally: 1 FAMHX: Mother: Alive, well Father: , unknown Siblings: One brother Alive, well Children: None Unexpected deaths due to medical reasons: None. ROS: As noted in HPI, otherwise 11pt ROS of systems reviewed and unremarkable. PE: GEN: 20yoM, appears stated age. Well-nourished, well developed. No acute distress. Alert and oriented x 3. Pleasant, interactive. HEENT: Normocephalic, atraumatic. Pupils are equal, round, and reactive to light. Extraocular movements are intact. No nystagmus appreciated. Sclera are nonicteric. Conjunctiva without injection. Nose midline. Nasal turbinates without bogginess. EACs both patent BL. TMs both visualized and marte with good cone of light, no bulging or erythema. No facial asymmetry. Moist mucous membranes. Dentition fair. Pharynx pink and moist, no cobblestoning. Neck supple , trachea midline. No lymphadenopathy or thyromegaly appreciated. CHEST: Regular rate and rhythm, +S1, +S2 LUNGS: Clear to auscultation bilaterally. No wheezes, rales, or rhonchi. Breathing appears symmetric and easy. Patient is speaking in full sentences. No accessory muscle use. ABD: Round, soft, non-tender, non-distended. +Bowel sounds throughout. No rebound or guarding. No costovertebral angle tenderness. EXT: Pulses 2+ bilaterally dorsalis pedis and radial. No lower extremity edema appreciated. SKIN: [place], dry, warm. Capillary refill <2sec. No rashes. NEURO: Alert and oriented x 3. Cranial nerves III-XII are intact. No focal deficits appreciated. EKG: pending A&P: 20yoM admitted to [facility] for Acute psychosis with HI/SI 1. Psych. Plan per Psychiatry. Obtain baseline EKG to assure the safety of psychiatric medications as they can prolong the QT interval. 2. Nicotine dependence. Patch available. 3. Tattoo done unprofessionally. Patient agrees to HIV and hepatitis screening. 4. Follow up with PCP on discharge. 5. Substance use. Per psychiatry. 6. Abnormal TSH. Recheck thyroid profile. 7. Staff member present throughout exam, Davis baez. Vital Signs Vital Signs Label Value Date Time Patient Temperature 98.0 degrees F 08/01/16 0636 Temperature Source Tympanic 08/01/16 0636 Pulse 74 08/01/16 0636 Respiratory Rate 20 bpm 08/01/16 0636 Blood Pressure Assessment 121/65 (83) 08/01/16 0636 Bedside Pulse Oximetry 97 % 07/31/162045 Item Value Date Time Oxygen Delivery Method Room Air 07/31/162045 Laboratory Data Labs 24H Laboratory Tests 2 07/31/16 15:19: Acetaminophen Level < 2.0L, Aspartate Amino Transf (AST/SGOT) 12L, Alanine Aminotransferase (ALT/SGPT) 16, Alkaline Phosphatase 93, Total Bilirubin 0.2, Direct Bilirubin < 0.1, Albumin 3.8, Albumin/Globulin Ratio 1.27, Anion Gap 6L, Calcium Level 8.7, Ethyl Alcohol Level < 0.003, Glomerular Filtration Rate > 60.0, Salicylates Level < 1.7L, Thyroid Stimulating Hormone (TSH) 0.187L, Total Protein 6.8, Urine Amphetamines Screen NEGATIVE, Urine Benzodiazepines Screen POSITIVEH, Urine Opiates Screen NEGATIVE, Urine Barbiturates Screen NEGATIVE, Urine Cannabinoids Screen NEGATIVE, Urine Cocaine Metabolite Screen NEGATIVE, Urine Methadone Screen NEGATIVE, Urine Phencyclidine Screen NEGATIVE CBC/BMP Laboratory Tests 07/31/16 15:19 Red Blood Count 4.52, Mean Corpuscular Volume 91.5, Mean Corpuscular Hemoglobin 30.7, Mean Corpuscular Hemoglobin Concent 33.6, Red Cell Distribution Width 12.1 Home Medications No Active Prescriptions or Reported Meds Allergies Coded Allergies: No Known Allergies (Unverified , 07/31/16) Aisha Magana Aug 01, 2016 10:02
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
[2016-08-01 18:00] VITALS: BP 126/60
[2016-08-01] MEDS: LORazepam 1 MG TAB PO PRN (20:31)
[2016-08-01] MEDS: traZODone 50 MG TAB PO PRN (20:31)
[2016-08-02 06:16] VITALS: BP 129/73
[2016-08-02 08:20] LABS: T UPTAKE 31 % (33-40)
[2016-08-02] MEDS ORDERED: NICOTINE POLACRILEX 2 MG GUM PO PRN (09:15)
[2016-08-02] MEDS: LORazepam 1 MG TAB PO PRN (09:41)
[2016-08-02 12:54] LABS: CONTROL LINE INT CTR LINE PRESENT; HIV SCRN NEGATIVE (NEGATIVE); HIV SCRN1 NEGATIVE (NEGATIVE)
--- NOTE | 2016-08-02 18:25 | IPNPDOC ---
[facility] Progress Note Progress Note DATE OF SERVICE: 08/02/16 INTERVAL HISTORY: Patient is met with shortly today. He described that he was interesting going home. He did state that he liked the when necessary Ativan given to him last night. He inquired whether he can get a prescription for such now patient. However, due to his benzodiazepine abuse this was entertained. The patient appears to be amenable and friendly on the enciso. He's had no disruptive events overnight. Otherwise, he appears to be eager to be discharged. His check man was contacted and related great frustration with the patient's behavior. They described that they are feeling overwhelmed by his behavioral problems and that they're interested in Chaptering out of the in short order. VITAL SIGNS: See below. NEW TEST RESULTS: See below CURRENT MEDICATIONS: See below. MENTAL STATUS EXAMINATION: General: Well-dressed good hygiene Speech: Spontaneous and fluid Thought processes: Linear logical Thought content: Some perseveration on discharge Abstract reasoning, and computation: Intact Description of associations: Intact Description of abnormal or psychotic thoughts:Denies any suicidal or homicidal ideation. Denies any auditory or visual hallucinations. Does not appear to be responding to internal stimuli. Does not appear to be endorsing any bizarre or paranoid ideation. Judgment: Fair Insight: Poor Orientation: Alert and orientated 3 Recent and remote memory: Intact Attention span and concentration: Intact Fund of knowledge: Adequate Mood: "Want to go home" Affect: Euthymic with a full range DIAGNOSES: 1. Unspecified trauma/stressor related disorder. 2. Unspecified personality disorder. 3. Polysubstance abuse, severe, in controlled setting. 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 He presents primarily to the psychiatric enciso claiming that he had done it as a means of enacting hostility with his chain of command. He is not interested in starting any medications other than benzodiazepines. He is interested in discharge. MANAGEMENT PLAN: Medications: No medications at this time other than when necessary trazodone Psychotherapy: Recommend group and milieu psychotherapy Social: Chain of command meeting tomorrow for discharge Misc: None Disposition: The patient will need further time in the inpatient psychiatric unit in order to ensure a safe and calm plans of discharge TIME SPENT: 15 minutes. Vital Signs Vital Signs Date Time Temp Pulse Resp B/P Pulse Ox O2 Delivery O2 Flow Rate FiO2 08/02/16 06:16 97.6 73 18 129/73 07/31/16 20:59 Room Air 07/31/16 20:46 97 Laboratory Data 24H Labs Laboratory Tests 2 08/02/16 06:34: Free Thyroxine Index 1.9, HIV (1&2) Antibody NEGATIVE, HIV P24 Antigen NEGATIVE , Hepatitis A IgM Antibody NEGATIVE, Hepatitis B Core IgM Antibody NEGATIVE, Hepatitis B Surface Antigen NEGATIVE, Hepatitis C Antibody Index 0.1, Thyroid Stimulating Hormone (TSH) 0.903, Thyroxine (T4) 6.0, Triiodothyronine (T3) Uptake 31L Current Medications Current Medications Acetaminophen (Tylenol Tab) 650 mg Q6HP PRN PO HEADACHE or DISCOMFORT; Start at 22:15; Stop 08/30/16 at 22:14 Al Hydrox/Mg Hydrox/Simethicone (Mylanta) 30 ml Q4HP PRN PO HEARTBURN/ INDIGESTION; Start 07/31/16 at 22:15; Stop 08/30/16 at 22:14 Home Med (Med Rec Complete!) ASDIRECTED XX ; Start 07/31/16 at 18:30; Stop at 18:32; Status DC Lorazepam (Ativan) 1 mg Q4HP PRN PO ANXIETY Last administered on 08/02/16 09: 41; Start 07/31/16 at 22:15; Stop 08/07/16 at 22:14 Magnesium Hydroxide (Milk Of Magnesia) 30 ml DAILYPRN PRN PO CONSTIPATION; Start 07/31/16 at 22:15; Stop 08/30/16 at 22:14 Nicotine (Nicoderm Cq 21mg) 1 patch DAILY TD Last administered on 08/01/16 13: 53; Start 08/01/16 at 09:00; Stop 08/02/16 at 09:02; Status DC Nicotine (Nicorette) 2 mg Q2HP PRN PO SMOKING CESSATION; Start 08/02/16 at 09: 15; Stop 09/01/16 at 09:14 Risperidone (RisperDAL) 1 mg Q4HP PRN PO agitation; Start 07/31/16 at 22:15; Stop 08/30/16 at 22:14 Trazodone HCl (Desyrel) 50 mg QHSP PRN PO INSOMNIA Last administered on t 20:31; Start 07/31/16 at 22:15; Stop 08/30/16 at 22:14 Allergies Coded Allergies: No Known Allergies (Unverified , 07/31/16) GME ATTESTATION My preceptor for this patient encounter was physically present in the building during the encounter and was fully available. As needed, all aspects of the patient interview, examination, medical decision making process, and medical care plan development were reviewed and approved by the preceptor. Preceptor is aware and concurs with the plan as stated in the body of this note and will attest to such by his/her cosignature. GINGER MUNIZ DO Aug 02, 2016 18:25
[2016-08-02 18:28] VITALS: BP 127/59
[2016-08-02] MEDS: traZODone 50 MG TAB PO PRN (20:46)
[2016-08-03 06:38] VITALS: BP 124/62
[2016-08-03] MEDS ORDERED: NICO2GUM62 PO (08:10)
[2016-08-03] MEDS: LORazepam 1 MG TAB PO PRN (08:47)
--- NOTE | 2016-08-03 17:35 | DS.PDOC ---
[facility] Discharge Summary Discharge Summary DATE OF ADMISSION: Jul 31, 2016 at 18:07 DATE OF DISCHARGE: Aug 03, 2016 at 10:45 DISCHARGE DIAGNOSES: 1. Unspecified trauma/stressor related disorder. 2. Malingering. REASON FOR ADMISSION: The patient was admitted due to reported suicidal ideation. He after being admitted described that this was done as a means of an acting hostility towards his chain of command. CONSULTANTS INVOLVED: None TREATMENT AND PROGRESS ON THE UNIT : Legal status on admission: 9.39 Medication Management: No medications were started as the patient refused to consider an antidepressant or treatment for a possible trauma/stressor related disorder Psychotherapy: The patient participated at times in groups Behavior: Generally amenable on the enciso with no acute incidences of agitation or disruptive behavior Discharge planning: The patient requested discharge and a subsequent chain command meeting was called where he produced pain was able to have a coherent discussion with his chain of command and understands with provoking factors that caused him to form such hostility towards his employer. DISCHARGE ASSESSMENT: 20-year-old male with possible PTSD whom appears to become increasingly more irritated and hostile with his work environment that precipitated into a psychiatric admission MENTAL STATUS EXAMINATION ON DISCHARGE: General: Well dressed with good hygiene Speech: Spontaneous and fluid Thought processes: Linear and logical Thought content: Focused on discharge Abstract reasoning, and computation: Intact Description of associations: Intact Description of abnormal or psychotic thoughts:Denies any suicidal or homicidal ideation. Denies any auditory or visual hallucinations. Does not appear to be responding to internal stimuli. Does not appear to be endorsing any bizarre or paranoid ideation. Judgment: Fair Insight: Improved but poor Orientation: Alert and orientated 3 Recent and remote memory: Intact Attention span and concentration: Intact Fund of knowledge: Adequate Mood: "Good" Affect: Euthymic with a full range PLAN/FOLLOWUP ARRANGEMENTS: The patient was discharged back to [facility] for further psychotherapy management.. The amount of time spent in the coordination of care for this patient was approximately 30 minutes. Vital Signs Vital Sign - Last 24 Hours 08/02/16 08/03/16 18:28 06:38 Temp 98.3 98.6 Pulse 92 79 Resp 16 16 B/P 127/59 124/62 Medications Scheduled PRN Nicotine Polacrilex (Nicorelief) 2 Mg Gum #30 2 MG PO Q2HP PRN PRN SMOKING CESSATION Allergies Coded Allergies: No Known Allergies (Unverified , 3/20/17) GME ATTESTATION My preceptor for this patient encounter was physically present in the building during the encounter and was fully available. As needed, all aspects of the patient interview, examination, medical decision making process, and medical care plan development were reviewed and approved by the preceptor. Preceptor is aware and concurs with the plan as stated in the body of this note and will attest to such by his/her cosignature. GINGER MUNIZ DO Aug 03, 2016 17:35 GINGER MUNIZ DO Aug 03, 2016 17:35
== END 2016-08-03 10:45 | disposition home or self-care (01) | DRG 882 ==
LOC: M ED 16:07 → M ED INP 18:07 → M PSY 20:53
PROVIDERS: ADMIT Internal Medicine Addiction Medicine; ATTEND Internal Medicine Addiction Medicine
DX: F43.9 Reaction to severe stress, unspecified (principal); R45.851 Suicidal ideations; R45.850 Homicidal ideations; F17.210 Nicotine dependence, cigarettes, uncomplicated; R94.6 Abnormal results of thyroid function studies; F19.90 Other psychoactive substance use, unspecified, uncomplicated; Z76.5 Malingerer [conscious simulation]